=== PATIENT | female | born 1935 ===

== ENCOUNTER 2017-11-01 09:35 | Emergency (ER) | payer MEDICARE ==
[2017-11-01 10:10] VITALS: BP 177/76
--- NOTE | 2017-11-01 10:18 | UC ---
Lower Extremity/Ankle HPI - HPI Summary HPI Summary: Pt presents with injury to right great toe. She tells me that 3 days ago she dropped something on her right toe - had immediate pain but was able to ambulate. She is here today with a large "blood blister" to this injured area. She is on coumadin and does have diabetes. Currently no pain. - History of Current Complaint Hx Obtained From: Patient Severity Initially: Moderate Severity Currently: None Pain Scale Used: 0-10 Numeric Able to Bear Weight: Yes <Walter Valdes - Last Filed: 11/01/17 13:49> <Fatou Rosa - Last Filed: 11/02/17 20:22> - History of Current Complaint Chief Complaint: UCWounds Stated Complaint: RIGHT BIG TOE INJURY (BLOOD BLISTER) 3 DAYS Time Seen by Provider: 11/01/17 10:18 - Allergies/Home Medications Allergies/Adverse Reactions: Allergies Allergy/AdvReac Type Severity Reaction Status Date / Time Sulfa (Sulfonamide Allergy Unknown Verified 11/01/17 09:59 Antibiotics) Reaction Details Home Medications: Home Medications Ascorbic Acid TAB* [Vitamin C TAB*] 1,000 mg PO DAILY 11/01/17 [History Confirmed 11/01/17] Atorvastatin* [Lipitor 20 MG*] 20 mg PO BEDTIME 11/01/17 [History Confirmed 01/13] Calcium Citrate/Vitamin D3 [Calcium Citrate - Vit D Tablet] 1 tab PO DAILY 11/01 [History Confirmed 11/01/17] Cholecalciferol TAB* [Vitamin D TAB*] 5,000 units PO DAILY 11/01/17 [History Confirmed 11/01/17] Ferrous Gluconate TAB* [Fergon TAB*] 324 mg PO BID 11/01/17 [History Confirmed 11/01/17] Insulin Detemir (NF) [Levemir (NF)] 10 units SUBCUT 2200 11/01/17 [History Confirmed 11/01/17] Lisinopril [Lisinopril 2.5 MG-] 2.5 mg PO DAILY 11/01/17 [History Confirmed 01/13] Potassium Chlor TAB* [Potassium Chlor TAB 20 MEQ*] 1 tab PO DAILY 11/01/17 [ History Confirmed 11/01/17] Sotalol HCl [Sotalol] 80 mg PO BID 11/01/17 [History Confirmed 11/01/17] Warfarin TAB(*) [Coumadin TAB(*)] 1 - 2 tab PO SEE INSTRUCTIONS 11/01/17 [ History Confirmed 11/01/17] PMH/Surg Hx/FS Hx/Imm Hx Endocrine History: Diabetes, Dyslipidemia Cardiovascular History: Cardiac Disease, Hypertension - Surgical History Surgical History: Yes Surgery Procedure, Year, and Place: Colostomy reversal; Perf bowel repair; T&A - Family History Known Family History: Positive: Cardiac Disease, Hypertension, Diabetes - Social History Occupation: Retired Lives: With Family Alcohol Use: None Substance Use Type: None Smoking Status (MU): Never Smoked Tobacco Household Exposure Type: Cigarettes <Walter Valdes - Last Filed: 11/01/17 13:49> Review of Systems Constitutional: Negative Skin: Other - Right great toe blood blister Respiratory: Negative Cardiovascular: Negative Neurovascular: Negative Musculoskeletal: Negative Neurological: Negative Psychological: Negative All Other Systems Reviewed And Are Negative: Yes <Walter Valdes Filed: 11/01/17 13:49> Physical Exam - Summary Physical Exam Summary: GENERAL: NAD. WDWN. No pain distress. SKIN: Large 3.0cm hematoma to dorsal aspect of right great toe. Mild surrounding erythema and edema. NECK: Supple. Nontender. No lymphadenopathy. CHEST: CTAB. No r/r/w. No accessory muscle use. Breathing comfortably and in no distress. CV: RRR. Without m/r/g. Pulses intact PT and DP. Brisk cap refill. MSK: Mild TTP distal right great toe. NEURO: Alert. PSYCH: Age appropriate behavior. Triage Information Reviewed: Yes Vital Signs: Initial Vital Signs Temp 98.4 F 11/01/17 10:01 Pulse 53 11/01/17 10:01 Resp 16 11/01/17 10:01 BP 177/76 11/01/17 10:01 Pulse Ox 98 11/01/17 10:01 <Walter Valdes - Last Filed: 11/01/17 13:49> Vital Signs: Initial Vital Signs Temp 98.4 F 11/01/17 10:01 Pulse 53 11/01/17 10:01 Resp 16 11/01/17 10:01 BP 177/76 11/01/17 10:01 Pulse Ox 98 11/01/17 10:01 <Fatou Rosa - Last Filed: 11/02/17 20:22> Procedures - Incision and Drainage Site: Right great toe Instrument(s): Needle - 18G <Walter Valdes - Last Filed: 11/01/17 13:49> Lower Extremity Course/Dx - Course Course Of Treatment: XR: IMPRESSION: 1. OSTEOPENIA. 2. HALLUX VALGUS WITH OSTEOARTHRITIS. 3. SOFT TISSUE SWELLING ALONG THE FIRST INTERPHALANGEAL JOINT. 4. NO ACUTE OSSEOUS INJURY. IF SYMPTOMS PERSIST, RECOMMEND REPEAT IMAGING. A time out was performed, witnessed, and signed. An 18G needle was used to matthew the blister and drain the blood. Pt tolerated procedure well. Blister flattened and pressure dressing applied. Given her diabetes, I will cover her with Keflex. - Differential Dx/Diagnosis Provider Diagnoses: Right great toe hematoma <DhrvunafisakranthiAngel daughertyWalter Jared Last Filed: 11/01/17 13:49> Discharge - Sign-Out/Discharge Documenting (check all that apply): Discharge - Billing Disposition and Condition Condition: STABLE Disposition: HOME <LucioWalter Jared Last Filed: 11/01/17 13:49> - Sign-Out/Discharge Documenting (check all that apply): Discharge - Billing Disposition and Condition Condition: STABLE Disposition: HOME <Fatou Rosa - Last Filed: 11/02/17 20:22> - Discharge Plan Condition: Stable Disposition: HOME Prescriptions: Cephalexin CAP* [Keflex CAP*] 500 mg PO BID #14 cap Patient Education Materials: Hematoma (ED) Referrals: Michael Glynn MD [Primary Care Provider] - Additional Instructions: If you develop a fever, shortness of breath, chest pain, new or worsening symptoms - please call your PCP or go to the ED. Your blood pressure was high at todays visit. Please see your primary provider within 4 weeks for recheck and re-evaluation. 1) Please schedule a follow up with your algorithm design engineer as soon as possible. Keep the dressing clean dry and intact and change daily. Attestation Statement User Type: Provider - I was available for consult. This patient was seen by the [facility]. The patient was not presented to, seen by, or examined by me. -Judy <Fatou Rosa - Last Filed: 11/02/17 20:22>
--- NOTE | 2017-11-01 11:11 | RAD ---
HISTORY: Right great toe pain, blister COMPARISONS: None VIEWS: 3, Frontal, lateral, and oblique views of the first digit of the right foot FINDINGS: BONE DENSITY: There is diffuse osteopenia. BONES: There is no displaced fracture. JOINTS: There is advanced osteoarthritis of the first MTP joint and midfoot. There is mild osteoarthritis of the interphalangeal joints. ALIGNMENT: There is hallux valgus. SOFT TISSUES: There is focal soft tissue swelling along the first interphalangeal joint. OTHER FINDINGS: None. IMPRESSION: 1. OSTEOPENIA. 2. HALLUX VALGUS WITH OSTEOARTHRITIS. 3. SOFT TISSUE SWELLING ALONG THE FIRST INTERPHALANGEAL JOINT. 4. NO ACUTE OSSEOUS INJURY. IF SYMPTOMS PERSIST, RECOMMEND REPEAT IMAGING
== END 2017-11-01 11:43 | disposition home or self-care (01) ==
LOC: UCCORT 09:35
DX: S90.111A Contusion of right great toe without damage to nail, initial encounter (principal); E11.9 Type 2 diabetes mellitus without complications; E78.5 Hyperlipidemia, unspecified; I10 Essential (primary) hypertension; I25.10 Atherosclerotic heart disease of native coronary artery without angina pectoris
CPT/HCPCS: 99212; G0463